=== PATIENT | male | born 1955 | race Caucasian/White ===

== ENCOUNTER → 2018-02-19 | Day surgery (SDC) | payer OTHER ==
[~2018-02-19] MED LIST: DEXILANT60 MG PO; FENTANYL CITRATE/PF 100MCG/2 ML INJ ONE; LIDOCAINE HCL 2% LOCAL INJ 5 ML SDV VIAL INJ ONE; LIVALO4 MG PO; MIDAZOLAM HCL 2 MG/2 ML VIAL ONE; NORCO 5-325 TA1 EACH PO; PROPOFOL IV EMULSION 10 MG/ML 20 ML VIAL ONE; TIZANIDINE HCL4 MG PO
--- NOTE | 2018-02-19 10:33 | Operative Report ---
DATE OF PROCEDURE: February 19, 2018 PROCEDURE PERFORMED: Esophagogastroduodenoscopy. PREOPERATIVE DIAGNOSIS: Chronic gastroesophageal reflux disease. POSTOPERATIVE DIAGNOSES 1. Hiatal hernia. 2. Reflux esophagitis. 2. Gastritis. PREOPERATIVE MEDICATIONS: MAC anesthesia. DESCRIPTION OF PROCEDURE: Using the Olympus EQO video gastroscope, it was inserted in the patient's oropharynx, advanced to the hypopharynx and down into the esophagus. The mucosal pattern in the esophagus was normal until we came to the area of the GE junction. Here he had a hiatal hernia, sliding type, from 40 to 41 cm with reflux esophagitis just above the GE junction. Biopsies were obtained. The stomach was then entered and insufflated with air. The mucosa pattern of the cardia, fundus, body and antrum was viewed. There was evidence of gastritis in the body and antrum of the stomach without evidence of ulceration. The pylorus was visualized and entered. The duodenal bulb and postbulbar duodenum were found to be within normal limits. The endoscope was withdrawn back up into the stomach where a biopsy was obtained down in the antrum, looking for the H. pylori infection. The scope was retroflexed, viewing the GE junction from below. Again, the hiatal hernia was seen. The endoscope was placed back into the body of the stomach and then slowly withdrawn back up into the esophagus, hypopharynx, oropharynx and out of the patient's mouth, and the procedure was ended. Job#: [id number]
--- NOTE | 2018-02-19 10:33 | Operative Report ---
DATE OF PROCEDURE: February 19, 2018 PROCEDURE PERFORMED: Colonoscopy. PREOPERATIVE DIAGNOSIS: History of colon polyps and diarrhea. POSTOPERATIVE DIAGNOSES 1. Colon polyp in the ascending colon, removed with hot biopsy forceps. 2. Area of colitis in the sigmoid colon. 3. Proctitis in the rectum. 4. Internal hemorrhoids. DESCRIPTION OF PROCEDURE: Using the [employer] video colonoscope, it was inserted in the patient's rectum and advanced without difficulty to the level of the cecum. The colon was studied from that level back down to the rectum. In the ascending colon, there was a 5 mm size polyp, which was removed with hot biopsy forceps. As we withdrew the scope back into the sigmoid colon, there was an area of isolated colitis with small ulcerations. Biopsy was obtained. Down in the rectum, there was proctitis present. Biopsies were obtained. Internal hemorrhoids were seen as we withdrew the scope from the rectum. Job#: [id number]
== END | disposition home or self-care (01) ==
LOC: OR 07:21
PROVIDERS: ATTEND Internal Medicine Gastroenterology
DX: K21.0 Gastro-esophageal reflux disease with esophagitis (principal); D12.2 Benign neoplasm of ascending colon; K29.50 Unspecified chronic gastritis without bleeding; K25.9 Gastric ulcer, unspecified as acute or chronic, without hemorrhage or perforation; K52.9 Noninfective gastroenteritis and colitis, unspecified; K44.9 Diaphragmatic hernia without obstruction or gangrene; K62.89 Other specified diseases of anus and rectum; K64.8 Other hemorrhoids; H91.90 Unspecified hearing loss, unspecified ear; N20.0 Calculus of kidney; R53.1 Weakness; J34.89 Other specified disorders of nose and nasal sinuses; R42 Dizziness and giddiness; F32.9 Major depressive disorder, single episode, unspecified; F41.9 Anxiety disorder, unspecified; F17.200 Nicotine dependence, unspecified, uncomplicated; Z88.0 Allergy status to penicillin; Z88.8 Allergy status to other drugs, medicaments and biological substances; Z01.810 Encounter for preprocedural cardiovascular examination; Z68.33 Body mass index [BMI] 33.0-33.9, adult; Z83.79 Family history of other diseases of the digestive system
CPT/HCPCS: 43239; 45380; 45384; 93005; J2001; J2250